=== PATIENT | female | born 1990 | race Two or more races ===

== ENCOUNTER → 2020-03-06 | Outpatient (CLI) | payer OTHER | END | disposition home or self-care (01) | LOC: RAD 17:49 | PROVIDERS: ATTEND Nurse Practitioner | DX: Z33.1 Pregnant state, incidental (principal); R93.89 Abnormal findings on diagnostic imaging of other specified body structures; R10.30 Lower abdominal pain, unspecified | CPT/HCPCS: 76801 ==